=== PATIENT | female | born 1955 | race Two or more races ===

== ENCOUNTER 2019-05-05 19:06 | Emergency (ER) | payer OTHER ==
[~2019-05-05] VITALS: Ht 162.6 cm; Wt 93.4 kg
--- NOTE | 2019-05-05 19:24 | NUR ---
PT CAME TO ER WITH C/O BLOOD SUGAR BEING IN THE 20s. PATIENT STATES THAT SHE HAS NOT EATEN THE WHOLE DAY. BLOOD SUGAR CHECKED 106; DR. ABARCA NOTIFIED. AAOX4. NO SOB. NOT IN ANY DISTRESS. CONNECTED TO THE MONITOR.
--- NOTE | 2019-05-05 20:36 | NUR ---
DR. ABARCA AT BEDSIDE FOR RE EVALUATION
[2019-05-05 21:26] VITALS: BP 125/67
--- NOTE | 2019-05-05 21:26 | NUR ---
DAUGHTER DRIVING THE PATIENT HOME
--- NOTE | 2019-05-05 21:26 | NUR ---
Patient discharged to home in stable condition. Written and verbal after care instructions given. Patient verbalizes understanding of instruction.
== END 2019-05-05 21:26 | disposition home or self-care (01) ==
LOC: ER 19:07
DX: E11.649 Type 2 diabetes mellitus with hypoglycemia without coma (principal); I10 Essential (primary) hypertension; Z95.0 Presence of cardiac pacemaker; Z95.818 Presence of other cardiac implants and grafts